=== PATIENT | male | born 1960 | race Caucasian/White ===

== ENCOUNTER → 2019-06-26 10:05 | Outpatient (BNVA) | payer OTHER, SELFPAY | PROVIDERS: PCP Family Medicine; Referring Provider Nurse Practitioner Family; Visit Provider Specialist | DX: M25.532 Pain in left wrist (principal) | CPT/HCPCS: 73110 ==

== ENCOUNTER 2019-07-08 06:00 | Outpatient (RCR) | payer OTHER, SELFPAY | END 2019-07-19 23:59 | disposition home or self-care (01) | LOC: TOT 06:00 | PROVIDERS: PCP Family Medicine; Referring Provider Specialist; Visit Provider Specialist | DX: M77.9 Enthesopathy, unspecified (principal) | CPT/HCPCS: 97110; 97166; L3807 ==

== ENCOUNTER 2019-07-20 06:00 | Outpatient (RCR) | payer OTHER, SELFPAY | END 2019-08-19 23:59 | disposition home or self-care (01) | LOC: TOT 06:00 | PROVIDERS: PCP Family Medicine; Referring Provider Specialist; Visit Provider Specialist | DX: M77.9 Enthesopathy, unspecified (principal) | CPT/HCPCS: 97110 ==